=== PATIENT | male | born 1980 | race Caucasian/White ===

== ENCOUNTER 2017-08-26 10:16 | Emergency (ER) | payer MEDICAID ==
[~2017-08-26] VITALS: Ht 167.6 cm; Wt 80.0 kg
[2017-08-26] MEDS ORDERED: VAL5T PO (11:19)
[2017-08-26] MEDS ORDERED: ONDA4TAB9 SL (11:19)
[2017-08-26] MEDS ORDERED: METH4TAB3 PO (11:19)
[2017-08-26] MEDS ORDERED: HYDR-3965 PO (11:19)
[2017-08-26] MEDS ORDERED: METH500T PO (11:19)
[2017-08-26] MEDS ORDERED: ondansetron 4mg rapidly disintigrating tab PO ONE (11:20)
[2017-08-26] MEDS ORDERED: HYDROcodone/acetaminophen 5mg/325mg tablet PO ONE (11:20)
[2017-08-26] MEDS ORDERED: diazepam 5mg tablet PO ONE (11:20)
[2017-08-26] MEDS ORDERED: dexamethasone 4mg tablet PO ONE (11:20)
[2017-08-26 12:27] VITALS: BP 135/83
== END 2017-08-26 12:45 | disposition home or self-care (01) ==
LOC: EDBD 10:18 → ER 10:18
DX: S39.012A Strain of muscle, fascia and tendon of lower back, initial encounter (principal); M54.42 Lumbago with sciatica, left side; Y93.H1 Activity, digging, shoveling and raking; Y93.89 Activity, other specified; Y92.89 Other specified places as the place of occurrence of the external cause; Y99.8 Other external cause status; Z88.1 Allergy status to other antibiotic agents
CPT/HCPCS: 72100; 99284; J8540